=== PATIENT | female | born 1985 | race Caucasian/White ===

== ENCOUNTER 2020-02-07 09:15 | Inpatient (IN) ==
[2020-02-07] MEDS: DEXTROSE 5% NACL 0.45% 1,000 ML IV SCH ×3 (14:20→23:58)
[2020-02-07] MEDS: ACETAMINOPHEN 325 MG TABLET PO PRN (14:21)
[2020-02-07] MEDS: methylPREDNISolone SOD SUC 40 MG/1 ML VIAL IV SCH ×2 (14:21→22:15)
[2020-02-07 14:30] LABS: Basophils # 0.1 10*3/uL (0.0-0.2); Basophils % 0.6 % (0.0-0.8); Eosinophils % 4.2 % (0.00-10.9); Hematocrit 32.9 VOL% (35.7-47.0); Hemoglobin 10.2 GM/DL (12.0-16.0); Immature Granulocytes % 3.1 %; Immature Granulocytes Absolute 0.71 #; Lymphocytes # 2.9 10*3/uL (1.4-4.0); Lymphocytes % 12.6 % (21.3-54.2); Mean Corpuscular Volume 80.6 FL (87-102); Mean Platelet Volume 8.7 FL (9.6-12.0); Monocytes % 10.1 % (1.7-12.7); NRBC # 0.03 10*3/uL; Neutrophils % 69.4 % (38.7-73.9); Platelet Count 686 T/CUMM (130-400); Red Blood Count 4.08 MC/CUMM (3.8-5.5); Red Cell Distribution Width 15.1 % (9.3-17.3)
[2020-02-07 14:44] LABS: Alanine Aminotransferase < 6 U/L (13-56); Albumin 2.1 G/DL (3.4-5.0); Alkaline Phosphatase 57 U/L (45-117); Aspartate Amino Transferase 7 U/L (0-37); Blood Urea Nitrogen 5 MG/DL (7-18); Estimated Glom Filtration Rate 118 ML/MIN; Glucose 93 MG/DL (74-106); Osmolality,Calculated 258.7 MOS/KG (273-304); Total Protein 6.1 G/DL (6.4-8.3)
[2020-02-07 15:01] LABS: Band Neutrophils 5 % (0-10); Eosinophils 3 % (0-10); Lymphocytes 14 % (20-55); Macrocytosis Slight; Polychromasia Few; Segmented Neutrophils 71 % (50-85); Total Cells Counted 100
[2020-02-07 15:02] LABS: Platelet Estimate Increased
[2020-02-07] MEDS: metroNIDAZOLE INJ 500 MG in PREMIX 1 EACH IV SCH ×2 (16:07→23:43)
[2020-02-07] MEDS: CIPROFLOXACIN INJ 400 MG in PREMIX 1 EACH IV SCH (17:05)
[2020-02-07] MEDS: ONDANSETRON 4 MG/2 ML VIAL IV PRN (17:07)
[2020-02-07] MEDS ORDERED: PROMETHAZINE 25 MG/1 ML VIAL IM PRN (18:19)
[2020-02-08] MEDS: CIPROFLOXACIN INJ 400 MG in PREMIX 1 EACH IV SCH (03:58)
[2020-02-08 06:09] LABS: Basophils # 0.1 10*3/uL (0.0-0.2); Basophils % 0.3 % (0.0-0.8); Eosinophils % 0.1 % (0.00-10.9); Hematocrit 28.6 VOL% (35.7-47.0); Hemoglobin 8.9 GM/DL (12.0-16.0); Lymphocytes # 1.5 10*3/uL (1.4-4.0); Lymphocytes % 10.1 % (21.3-54.2); Mean Corpuscular HGB Conc 31.1 GM/DL (32-36); Mean Corpuscular Volume 80.3 FL (87-102); Monocytes % 3.6 % (1.7-12.7); Neutrophils % 83.9 % (38.7-73.9); Platelet Count 566 T/CUMM (130-400); Red Blood Count 3.56 MC/CUMM (3.8-5.5); Red Cell Distribution Width 14.7 % (9.3-17.3); White Blood Count 14.9 T/CUMM (4-12)
[2020-02-08 06:29] LABS: Calcium 7.7 MG/DL (8.5-10.1); Osmolality,Calculated 272.1 MOS/KG (273-304)
[2020-02-08 06:59] LABS: Band Neutrophils 18 % (0-10); Hypochromasia 2+; Lymphocytes 9 % (20-55); Metamyelocytes 1 %; Platelet Estimate Increased; Segmented Neutrophils 69 % (50-85); Total Cells Counted 100
[2020-02-08] MEDS: methylPREDNISolone SOD SUC 40 MG/1 ML VIAL IV SCH ×3 (07:05→21:23)
[2020-02-08] MEDS: ACETAMINOPHEN 325 MG TABLET PO PRN (07:05)
[2020-02-08] MEDS: metroNIDAZOLE INJ 500 MG in PREMIX 1 EACH IV SCH (07:53)
[2020-02-08] MEDS: DEXTROSE 5% NACL 0.45% 1,000 ML IV SCH ×3 (08:52→22:30)
[2020-02-09] MEDS: methylPREDNISolone SOD SUC 40 MG/1 ML VIAL IV SCH ×3 (06:11→23:47)
[2020-02-09] MEDS: DOCUSATE SODIUM 100 MG CAPSULE PO PRN (12:25)
[2020-02-09] MEDS: DEXTROSE 5% NACL 0.45% 1,000 ML IV SCH ×2 (12:35→18:42)
[2020-02-09] MEDS: ONDANSETRON 4 MG/2 ML VIAL IV PRN (12:35)
[2020-02-10] MEDS: DOCUSATE SODIUM 100 MG CAPSULE PO PRN (01:42)
[2020-02-10] MEDS: methylPREDNISolone SOD SUC 40 MG/1 ML VIAL IV SCH ×2 (09:17→18:29)
[2020-02-10] MEDS ORDERED: TUBERCULIN SKIN TEST 0.1 ML SYRINGE INTRADERM ONE (13:57)
[2020-02-10 16:25] VITALS: BP 87/58
== END 2020-02-10 17:05 | disposition home or self-care (01) | DRG 387 ==
LOC: N.3E 12:42
PROVIDERS: ADMIT Internal Medicine Gastroenterology; ATTEND Internal Medicine Gastroenterology

== ENCOUNTER 2020-02-27 11:04 | Observation (INO) ==
[~2020-02-27 11:04] MED LIST: LIDOCAINE 2% 5 ML VIAL ONE; propofoL 200 MG/20 ML VIAL IV ONE
[2020-02-27] MEDS: LACTATED RINGERS 1,000 ML IV SCH ×2 (11:45→14:09)
[2020-02-27 12:51] LABS: Hematocrit 21.7 VOL% (35.7-47.0)
[2020-02-27 12:56] LABS: Hemoglobin 6.4 GM/DL (12.0-16.0)
[2020-02-27 13:15] LABS: Calcium 7.9 MG/DL (8.5-10.1)
[2020-02-27] MEDS ORDERED: ONDANSETRON 4 MG/2 ML VIAL IV PRN (13:23)
[2020-02-27] MEDS ORDERED: SODIUM CHLORIDE 0.9% 1,000 ML IV PRN (13:24)
[2020-02-27] MEDS ORDERED: MEPERIDINE 50 MG/1 ML VIAL IV ONE (13:45)
[2020-02-27] MEDS ORDERED: MEPERIDINE 50 MG/1 ML VIAL ONE (13:49)
[2020-02-27] MEDS ORDERED: ONDANSETRON 4 MG/2 ML VIAL ONE (13:49)
[2020-02-27] MEDS: ONDANSETRON 4 MG/2 ML VIAL IV PRN ×2 (13:55→22:40)
[2020-02-27] MEDS ORDERED: FLUCONAZOLE INJ 200 MG in PREMIX 1 EACH IV ONE (15:00)
[2020-02-27] MEDS: methylPREDNISolone SOD SUC 40 MG/1 ML VIAL IV SCH ×2 (15:38→21:46)
[2020-02-27] MEDS: PROMETHAZINE 25 MG/1 ML VIAL IM PRN (15:38)
[2020-02-27] MEDS: SODIUM CHLORIDE 0.9% 1,000 ML IV SCH ×2 (15:51→21:45)
[2020-02-27] MEDS: HYDROmorphone 2 MG/1 ML VIAL IV PRN ×2 (16:34→21:15)
[2020-02-28 02:10] LABS: Hematocrit 32.1 VOL% (35.7-47.0)
[2020-02-28] MEDS: HYDROmorphone 2 MG/1 ML VIAL IV PRN ×2 (03:47→09:05)
[2020-02-28] MEDS: PROMETHAZINE 25 MG/1 ML VIAL IM PRN ×2 (04:24→12:34)
[2020-02-28 05:11] LABS: Hematocrit 33.1 VOL% (35.7-47.0); Hemoglobin 10.3 GM/DL (12.0-16.0)
[2020-02-28] MEDS: methylPREDNISolone SOD SUC 40 MG/1 ML VIAL IV SCH ×2 (05:47→13:57)
[2020-02-28] MEDS: SODIUM CHLORIDE 0.9% 1,000 ML IV SCH (05:47)
[2020-02-28] MEDS ORDERED: FLUCONAZOLE INJ 100 MG in IV BAG 1 EACH IV ONE (09:00)
[2020-02-28] MEDS: LACTATED RINGERS 1,000 ML IV SCH (11:22)
[2020-02-28 11:30] VITALS: BP 102/59
== END 2020-02-28 14:08 | disposition home or self-care (01) ==
LOC: N.GILAB 11:04 → N.4E 11:04
PROVIDERS: ADMIT Internal Medicine Gastroenterology; ATTEND Internal Medicine Gastroenterology